=== PATIENT | female | born 1950 | race Hispanic/Latino ===

== ENCOUNTER → 2017-11-24 | Outpatient (CLI) | payer OTHER | END | disposition home or self-care (01) | LOC: RAH 11:07 | PROVIDERS: ATTEND Internal Medicine Endocrinology, Diabetes & Metabolism | DX: E04.9 Nontoxic goiter, unspecified (principal) | CPT/HCPCS: 76536 ==

== ENCOUNTER 2018-07-08 07:30 | Observation (INO) | payer OTHER ==
[~2018-07-08] VITALS: Ht 157.5 cm; Wt 57.1 kg
[2018-07-16 13:04] VITALS: BP 112/60
[2018-07-16 13:15] LABS: CREATININE 0.6 mg/dL (0.5-1.5); POTASSIUM 4.2 mmol/L (3.5-5.1)
[2018-07-16 13:16] LABS: BASOPHILS % (AUTO) 0.8 % (0.0-5.0); HEMATOCRIT 38.6 % (36-48); LYMPHOCYTES % (AUTO) 25.9 % (21.0-51.0); MEAN CORPUSCULAR HEMOGLOBIN 30.6 pg (27.0-33.0); MEAN CORPUSCULAR HGB CONC 33.1 g/dL (32.0-36.0); MEAN CORPUSCULAR VOLUME 92.5 fL (79-99); MONOCYTES % (AUTO) 5.8 % (3.0-13.0); NEUTROPHILS % (AUTO) 66.5 % (40.0-77.0); PLATELET COUNT (AUTO) 238 K/uL (130-400); RED BLOOD CELL COUNT(AUTO) 4.17 MIL/uL (4.00-5.50); WHITE BLOOD COUNT (AUTO) 5.5 K/uL (4.8-10.8)
[2018-07-16] MEDS ORDERED: GABA-531 PO (17:51)
[2018-07-16] MEDS ORDERED: ATOR10TA69 PO (17:51)
[2018-07-16] MEDS ORDERED: LEVO25TA54 PO (17:51)
[2018-07-19] MEDS ORDERED: CHOL200026 PO (17:33)
[2018-07-19] MEDS ORDERED: NAPR220T57 PO (17:33)
[2018-07-20] VITALS (22 sets, daily range): BP systolic 89–113; BP diastolic 48–64
[2018-07-20] MEDS ORDERED: CEFAZOLIN SODIUM 1 GM VIAL IVP SCH (05:00)
[2018-07-20] MEDS ORDERED: ROCURONIUM 10MG/1ML SYR 10 MG/ML ML ONE (06:58)
[2018-07-20] MEDS ORDERED: MIDAZOLAM HCL 1 MG/ML 2ML VIAL ONE (06:59)
[2018-07-20] MEDS ORDERED: FENTANYL CITRATE PF 50 MCG/1 ML 2ML VIAL ONE ×2 (07:00→09:31)
[2018-07-20] MEDS ORDERED: DEXAMETHASONE SOD PHOSPHATE 10MG/ML 1ML VIAL ONE (07:00)
[2018-07-20] MEDS ORDERED: LACTATED RINGERS 1000ML 1,000 ML IV ONE (07:54)
[2018-07-20] MEDS ORDERED: BUPIVACAINE/EPI/PF 0.25% 30ML VIAL IJ ONE (10:05)
[2018-07-20] MEDS ORDERED: THROMBIN-JMI 5000 UNIT/VIAL TP ONE (10:06)
[2018-07-20] MEDS ORDERED: BACITRACIN 50,000 UNIT VIAL ONE (10:06)
[2018-07-20] MEDS ORDERED: DURAMORPH PF1 MG/ML 10ML AMP IV ONE (10:06)
[2018-07-20] MEDS: DEXAMETHASONE SOD PHOSPHATE 4 MG/ML 1ML VIAL IVP SCH ×3 (10:30→22:18)
[2018-07-20] MEDS ORDERED: MORPHINE SULFATE 2 MG/ML 1ML SYG IVP PRN (10:30)
[2018-07-20] MEDS ORDERED: HYDROCODONE/ACETAMINOPHEN 5/325 MG TAB PO PRN (10:30)
[2018-07-20] MEDS ORDERED: PROMETHAZINE HCL 25 MG/ML 1ML AMPULE IM PRN (10:30)
[2018-07-20] MEDS ORDERED: SODIUM CHLORIDE 0.9% 10 ML VIAL IVP PRN (10:30)
[2018-07-20] MEDS: LACTATED RINGERS 1000ML 1,000 ML IV SCH ×2 (12:00→23:00)
[2018-07-20] MEDS: CEFAZOLIN SODIUM 1 GM VIAL IVP SCH ×3 (15:49→23:00)
[2018-07-20] MEDS ORDERED: SODIUM CHLORIDE 0.9% 500ML 500 ML IV SCH (19:30)
[2018-07-20] MEDS ORDERED: SODIUM CHLORIDE 0.9% 500ML 500 ML IV ONE (19:31)
--- NOTE | 2018-07-20 20:00 | NUR ---
HYPOTENSION PATIENT WITH BLOOD PRESSURE 85/[address] TAYLOR AND GOT ORDERS TO CONSULT HOSPITALIST AND CIVIL ENGINEERING ASSISTANT WAS NOTIFIED AND ORDER RECEIVED TO [facility] WITH 500ML OF NS.
[2018-07-20] MEDS ORDERED: GABAPENTIN 300 MG CAPSULE PO SCH (21:00)
[2018-07-20] MEDS ORDERED: NAPROXEN 250 MG TAB PO PRN (21:00)
[2018-07-20] MEDS ORDERED: ATORVASTATIN CALCIUM 10 MG TABLET PO SCH (21:00)
--- NOTE | 2018-07-20 21:00 | NUR ---
BLOOD PRESSURE PATIENT BLOOD PRESSURE STILL 87/53 POST [facility] [employer] OR [employer]IMAL CARETAKER NOTIFIED ORDERS TO PLACE PATIENT IN [place] .
--- NOTE | 2018-07-20 22:00 | NUR ---
PRIMARY MD UPON REVIEWING PATIENT CHART PATIENT'S PRIMARY MD IS DR DECKER. HE WAS PAGED AND HOSPITALIST CONSULT REMOVED. AWAITING DR DECKER'S CALL BACK.
--- NOTE | 2018-07-20 22:30 | NUR ---
MD CALL DR DECKER RETURNED CALL ORDERS GIVEN AND CARRIED OUT.
[2018-07-20] MEDS ORDERED: METHYLPREDNISOLONE SOD SUCC 125MG/2ML VIAL ONE (22:37)
--- NOTE | 2018-07-20 22:44 | NUR ---
WALKING UNABLE TO AMBULATE PATIENT PER DR SIX ORDERS DUE TO LOW BLOOD PRESSURES. SOON WE ATTEMPT TO GET PATIENT UP SHE BECOMES DIZZY WILL KEEP ATTEMPTED TO GET HER UP TO WALK.
[2018-07-20] MEDS: SODIUM CHLORIDE 0.9% 1000ML 1,000 ML IV SCH (22:45)
[2018-07-20] MEDS ORDERED: METHYLPREDNISOLONE SOD SUCC 125MG/2ML VIAL IVP ONE (22:45)
[2018-07-21] MEDS: SODIUM CHLORIDE 0.9% 1000ML 1,000 ML IV SCH (02:16)
[2018-07-21 03:15] VITALS: BP 92/53
[2018-07-21] MEDS: DEXAMETHASONE SOD PHOSPHATE 4 MG/ML 1ML VIAL IVP SCH ×2 (04:16→09:12)
[2018-07-21 04:52] LABS: HEMATOCRIT 31.7 % (36-48); LYMPHOCYTES % (AUTO) 4.7 % (21.0-51.0); MEAN CORPUSCULAR HEMOGLOBIN 32.7 pg (27.0-33.0); MEAN CORPUSCULAR HGB CONC 35.3 g/dL (32.0-36.0); MEAN CORPUSCULAR VOLUME 92.6 fL (79-99); MONOCYTES % (AUTO) 1.5 % (3.0-13.0); NEUTROPHILS % (AUTO) 93.8 % (40.0-77.0); PLATELET COUNT (AUTO) 161 K/uL (130-400); RED BLOOD CELL COUNT(AUTO) 3.42 MIL/uL (4.00-5.50); RED CELL DISTRIBUTION WIDTH 14.1 % (11.0-15.5); WHITE BLOOD COUNT (AUTO) 10.5 K/uL (4.8-10.8)
[2018-07-21 05:06] LABS: ALBUMIN 2.7 g/dL (3.5-5.0); BILIRUBIN,TOTAL 0.3 mg/dL (0.2-1.0); CREATININE 0.6 mg/dL (0.5-1.5); POTASSIUM 4.1 mmol/L (3.5-5.1); TOTAL PROTEIN, SERUM 5.5 g/dL (6.0-8.3)
[2018-07-21 07:45] VITALS: BP 81/48
[2018-07-21] MEDS ORDERED: LEVOTHYROXINE 25 MCG TABLET PO SCH (09:00)
[2018-07-21] MEDS ORDERED: VIT D3 PO SCH (09:00)
[2018-07-21] MEDS: CEFAZOLIN SODIUM 1 GM VIAL IVP SCH (09:11)
== END 2018-07-21 12:14 | disposition home or self-care (01) ==
LOC: EDSTATUS 07-16 11:30 → DAHIP 07-20 06:07 → 4AH 07-20 11:24
PROVIDERS: ADMIT Neurological Surgery; ATTEND Neurological Surgery
DX: M51.27 Other intervertebral disc displacement, lumbosacral region (principal); E03.9 Hypothyroidism, unspecified; I95.9 Hypotension, unspecified; I65.29 Occlusion and stenosis of unspecified carotid artery; Z79.899 Other long term (current) drug therapy; Z82.3 Family history of stroke
CPT/HCPCS: 36415 ×2; 63030; 72020; 80048; 80053; 85025 ×2; 96361 ×2; 96372; 96374; 96375; 96376 ×2; A4510; A4600; A4649 ×4; G0378 ×23; J0690; J1100 ×5; J2250; J2274; J2550; J2930; J3010; J3490 ×2; J7040; J7120 ×4

== ENCOUNTER → 2019-07-08 | Outpatient (CLI) | payer OTHER ==
[~2019-07-08] MED LIST: ATOR10TA69 PO; CHOL200026 PO; GABA-531 PO; LEVO25TA54 PO; NAPR220T57 PO
== END | disposition home or self-care (01) ==
LOC: RAH 08:44
PROVIDERS: ATTEND Internal Medicine Endocrinology, Diabetes & Metabolism
DX: E04.1 Nontoxic single thyroid nodule (principal)
CPT/HCPCS: 76536

== ENCOUNTER → 2023-09-25 | Outpatient (CLI) | payer OTHER | END | disposition home or self-care (01) | LOC: RAH 09:41 | PROVIDERS: ATTEND Internal Medicine Endocrinology, Diabetes & Metabolism | DX: E04.9 Nontoxic goiter, unspecified (principal) | CPT/HCPCS: 76536 ==